=== PATIENT | male | born 1985 | race Caucasian/White ===

== ENCOUNTER 2018-03-14 21:15 | Emergency (ER) | payer MEDICAID, OTHER ==
[~2018-03-14] VITALS: Ht 167.6 cm; Wt 75.0 kg
[~2018-03-14 21:15] MED LIST: CEPH-571 PO; DOXY100C43 PO; IBUP-1573 PO
[2018-03-14 21:20] VITALS: BP 123/68
[2018-03-14] MEDS ORDERED: acetaminophen 325mg tablet PO ONE (21:40)
[2018-03-14] MEDS ORDERED: LORazepam 1 MG tablet PO ONE (21:50)
== END 2018-03-14 23:59 | disposition home or self-care (01) ==
LOC: ER 21:16
DX: L03.116 Cellulitis of left lower limb (principal); F41.9 Anxiety disorder, unspecified; F15.90 Other stimulant use, unspecified, uncomplicated; Z59.0 Homelessness; Z56.0 Unemployment, unspecified; Z88.6 Allergy status to analgesic agent
CPT/HCPCS: 99284

== ENCOUNTER 2019-04-28 12:39 | Emergency (ER) | payer MEDICAID ==
[~2019-04-28] VITALS: Ht 172.7 cm; Wt 78.0 kg
[~2019-04-28 12:39] MED LIST changes: -DOXY100C43 PO
[2019-04-28 12:51] VITALS: BP 140/83
== END 2019-04-28 14:21 | disposition home or self-care (01) ==
LOC: ER 12:40
DX: S30.850A Superficial foreign body of lower back and pelvis, initial encounter (principal); F15.90 Other stimulant use, unspecified, uncomplicated; Z59.0 Homelessness; Z56.0 Unemployment, unspecified; Z88.6 Allergy status to analgesic agent; X58.XXXA Exposure to other specified factors, initial encounter; Y93.89 Activity, other specified; Y92.89 Other specified places as the place of occurrence of the external cause; Y99.9 Unspecified external cause status
CPT/HCPCS: 71045; 74018; 99283

== ENCOUNTER 2019-11-19 15:30 | Emergency (ER) | payer MEDICAID ==
[~2019-11-19] VITALS: Ht 167.6 cm; Wt 79.5 kg
[2019-11-19 15:36] VITALS: BP 148/92
[2019-11-19] MEDS ORDERED: CefTRIAXone 250MG IM Kit w/LIDOcaine IM ONE (15:50)
[2019-11-19] MEDS ORDERED: azithromycin 250mg tablet PO ONE (15:50)
[2019-11-19 16:06] LABS: CLARITY,URINE CLOUDY (Clear); COLOR,URINE YELLOW (Yellow); GLUCOSE, URINE NEGATIVE (Neg); KETONES,URINE NEGATIVE (Neg); LEUKOCYTE ESTERASE ,URINE MODERATE (Neg); NITRITES, URINE NEGATIVE (Neg); OCCULT BLOOD,URINE TRACE-INTACT (Neg); PROTEIN,URINE NEGATIVE (Neg); UROBILINOGEN,URINE 0.2 E.U/dL (0.2-1.0)
[2019-11-19 16:14] LABS: UA COLLECTION TYPE CLN CATCH MIDSTREAM
[2019-11-19 16:15] LABS: BACTERIA,URINE FEW /HPF (Neg); MUCUS STRANDS FEW /LPF (Neg); RBC,URINE 0-2 /HPF (0-2); SQUAMOUS EPITHELIAL CELL,UR NONE SEEN /LPF (FEW); WBC,URINE 50-100 /HPF (0-4)
[2019-11-19] MEDS ORDERED: DOXY-135 PO (16:16)
== END 2019-11-19 16:22 | disposition home or self-care (01) ==
LOC: ER 15:30
DX: N39.0 Urinary tract infection, site not specified (principal); Z20.2 Contact with and (suspected) exposure to infections with a predominantly sexual mode of transmission; R39.11 Hesitancy of micturition; M54.5 Low back pain; F17.200 Nicotine dependence, unspecified, uncomplicated; F15.90 Other stimulant use, unspecified, uncomplicated; Z56.0 Unemployment, unspecified; Z59.0 Homelessness; Z88.8 Allergy status to other drugs, medicaments and biological substances; Z79.2 Long term (current) use of antibiotics
CPT/HCPCS: 36415; 81001; 87088; 87491; 87591; 96372; 99283; J0696

== ENCOUNTER 2021-01-20 13:10 | Emergency (ER) | payer MEDICAID ==
[~2021-01-20] VITALS: Ht 167.6 cm; Wt 77.3 kg
== END 2021-01-20 14:56 | disposition home or self-care (01) ==
LOC: ER 13:10
DX: J02.9 Acute pharyngitis, unspecified (principal); Z20.822 Contact with and (suspected) exposure to COVID-19; R50.9 Fever, unspecified; R09.89 Other specified symptoms and signs involving the circulatory and respiratory systems; R51.9 Headache, unspecified; F15.90 Other stimulant use, unspecified, uncomplicated; F17.200 Nicotine dependence, unspecified, uncomplicated; Z56.0 Unemployment, unspecified; Z59.0 Homelessness; Z88.8 Allergy status to other drugs, medicaments and biological substances; Z79.2 Long term (current) use of antibiotics
CPT/HCPCS: 36415; 99283; U0003; U0005

== ENCOUNTER 2021-04-21 09:16 | Emergency (ER) | payer MEDICAID ==
[~2021-04-21] VITALS: Ht 167.6 cm; Wt 79.5 kg
[2021-04-21 09:36] VITALS: BP 158/102
== END 2021-04-21 10:56 ==
LOC: ER 09:17
DX: I10 Essential (primary) hypertension (principal); F41.9 Anxiety disorder, unspecified; F32.9 Major depressive disorder, single episode, unspecified; Z20.822 Contact with and (suspected) exposure to COVID-19; Z59.00 Homelessness unspecified; F15.10 Other stimulant abuse, uncomplicated; Z56.0 Unemployment, unspecified; Z88.8 Allergy status to other drugs, medicaments and biological substances
CPT/HCPCS: 99283